=== PATIENT | female | born 1995 | race Caucasian/White ===

== ENCOUNTER 2016-11-14 19:56 | Emergency (ER) | payer BC ==
[2016-11-14 20:10] VITALS: BP 137/88
[2016-11-14] MEDS ORDERED: LORazepam 2 MG/ML MDV IM ONE (20:22)
--- NOTE | 2016-11-14 20:58 | EDM.PDOC ---
ED HPI GENERAL MEDICAL PROBLEM - General Chief Complaint: Behavioral/Psych Stated Complaint: Psychiatric eval Time Seen by Provider: 11/14/16 20:00 Source of Information: Reports: Patient, Old Records, Police, RN Notes Reviewed History Limitations: Reports: Altered Mental Status - History of Present Illness INITIAL COMMENTS - FREE TEXT/NARRATIVE: 21 year old female is brought to the ED tonight by law enforcement due to suicidal thoughts and psychotic behavior. The patient's boyfriend called police and reported that the patient held a gun to her throat. He "wrestled" the gun away and called police. She reportedly smoked marijuana this evening prior to onset of symptoms. When the naval police coxswain arrived, he said that she was acting strange. She was referring to him as Kasey and George. She says she is suicidal and then will say that her boyfriend is trying to kill her. She was cooperative for him. The boyfriend is reportedly coming to the ED. History is difficult. The patient initially tells me "I am suicidal. I put a gun to my throat." When I asked why she stated "Because my boyfriend is trying to kill me." I asked her why she says that and she replied "How do you know my boyfriends name, we are reading each other's minds." She then called me Kasey. She then told me she thinks she is . She then called me george several times. The patient is restless. She walks out of the room and states "I' m suicidal." She denies drug use. She says she is a Voodoo. - Related Data Allergies Allergy/AdvReac Type Severity Reaction Status Date / Time No Known Allergies Allergy Verified 11/14/16 20:01 Home Meds: Home Meds . [No Known Home Meds] 05/16/16 [History] Past Medical History - Past Health History Medical/Surgical History: Denies Medical/Surgical History Psychiatric History: Reports: Depression Social & Family History - Family History Family Medical History: Noncontributory - Tobacco Use Smoking Status *Q: Never Smoker Second Hand Smoke Exposure: Yes - Alcohol Use Days Per Week of Alcohol Use: 3 Number of Drinks Per Day: 5 Total Drinks Per Week: 15 - Recreational Drug Use Recreational Drug Use: Yes Drug Use in Last 12 Months: Yes Recreational Drug Type: Reports: Marijuana/Hashish ED ROS GENERAL - Review of Systems Review Of Systems: Unable To Obtain (altered mental status) ED EXAM, BEHAVIORAL HEALTH - Physical Exam Exam: See Below Exam Limited By: Uncooperative General Appearance: Alert, Other (restless) Eye Exam: Bilateral Eye: EOMI, PERRL (pupils are large but reactive ) Respiratory/Chest: No Respiratory Distress, Lungs Clear, Normal Breath Sounds Cardiovascular: Regular Rate, Rhythm GI/Abdominal: Normal Bowel Sounds, Soft, Non-Tender Neurological: Alert, Normal Gait, Disoriented to Person, Disoriented to Place, Disoriented to Time, Inattentive. No: Ataxia Psychiatric: Alert, Flat Affect, Restless, Inattentive, Uncooperative, Flight of Ideas, Pentecostal Delusions, Suicidal Plan, Suicidal Thoughts Skin Exam: Warm, Dry, Intact COURSE, BEHAVIORAL HEALTH COMP - Course Vital Signs: Last Vital Signs Temp 98.7 F 11/14/16 20:01 Pulse 80 11/14/16 20:01 Resp 18 11/14/16 20:01 BP 137/88 11/14/16 20:01 Pulse Ox 97 11/14/16 20:01 Orders, Labs, Meds: Laboratory Tests 11/14/16 11/14/16 11/14/16 Range/Units 22:55 22:55 22:55 WBC 7.10 (3.98-10.04) K/mm3 RBC 3.92 L (3.98-5.22) M/mm3 Hgb 12.2 (11.2-15.7) gm/L Hct 34.6 (34.1-44.9) % MCV 88.3 (79.4-94.8) fl MCH 31.1 (25.6-32.2) pg MCHC 35.3 (32.2-35.5) g/dl RDW Std Deviation 40.0 (36.4-46.3) fL Plt Count 283 (182-369) K/mm3 MPV 10.6 (9.4-12.3) fl Neut % (Auto) 71.6 H (34.0-71.1) % Lymph % (Auto) 16.3 L (19.3-51.7) % [place] % (Auto) 11.1 (4.7-12.5) % Eos % (Auto) 0.1 L (0.7-5.8) Baso % (Auto) 0.6 (0.1-1.2) % Neut # (Auto) 5.08 (1.56-6.13) K/mm3 Lymph # (Auto) 1.16 L (1.18-3.74) K/mm3 [place] # (Auto) 0.79 H (0.24-0.36) K/mm3 Eos # (Auto) 0.01 L (0.04-0.36) K/mm3 Baso # (Auto) 0.04 (0.01-0.08) K/mm3 Sodium 142 (136-145) mEq/L Potassium 3.7 (3.5-5.1) mEq/L Chloride 107 (98-107) mEq/L Carbon Dioxide 24 (21-32) mEq/L Anion Gap 14.7 (5-15) BUN 7 (7-18) mg/dL Creatinine 0.6 (0.55-1.02) mg/dL Est Cr Clr Drug Dosing 126.38 mL/min Estimated GFR (MDRD) > 60 (>60) mL/min BUN/Creatinine Ratio 11.7 L (14-18) Glucose 109 H (74-106) mg/dL Calcium 9.2 (8.5-10.1) mg/dL Total Bilirubin 0.4 (0.2-1.0) mg/dL AST 28 (15-37) U/L ALT 30 (14-59) U/L Alkaline Phosphatase 56 (46-116) U/L Total Protein 7.4 (6.4-8.2) g/dl Albumin 4.0 (3.4-5.0) g/dl Globulin 3.4 gm/dL Albumin/Globulin Ratio 1.2 (1-2) Free T4 1.09 (0.76-1.46) ng/dL TSH 3rd Generation 7.396 H (0.358-3.74) uIU/mL Urine Color (Yellow) Urine Appearance (Clear) Urine pH (5.0-8.0) Ur Specific [place] (1.005-1.030) Urine Protein (Negative) Urine Glucose (UA) (Negative) Urine Ketones (Negative) Urine Occult Blood (Negative) Urine Nitrite (Negative) Urine Bilirubin (Negative) Urine Urobilinogen (0.2-1.0) Ur Leukocyte Esterase (Negative) Urine RBC (0-5) /hpf Urine WBC (0-5) /hpf Ur Epithelial Cells Ur Squamous Epith Cells (0-5) /hpf Urine Bacteria (FEW) /hpf Urine Mucus (FEW) /hpf Urine HCG, Qual (NEGATIVE) Urine Opiates Screen (NEGATIVE) Ur Buprenorphine Scrn (NEGATIVE) Ur Oxycodone Screen (NEGATIVE) Urine Methadone Screen (NEGATIVE) Ur Propoxyphene Screen (NEGATIVE) Ur Barbiturates Screen (NEGATIVE) Ur Tricyclics Screen (NEGATIVE) Ur Phencyclidine Scrn (NEGATIVE) Ur Amphetamine Screen (NEGATIVE) U Methamphetamines Scrn (NEGATIVE) U Benzodiazepines Scrn (NEGATIVE) U Cocaine Metab Screen (NEGATIVE) U Marijuana (THC) Screen (NEGATIVE) Ethyl Alcohol 0.00 (0.00) gm% 11/14/16 11/14/16 11/14/16 Range/Units 22:57 22:57 22:57 WBC (3.98-10.04) K/mm3 RBC (3.98-5.22) M/mm3 Hgb (11.2-15.7) gm/L Hct (34.1-44.9) % MCV (79.4-94.8) fl MCH (25.6-32.2) pg MCHC (32.2-35.5) g/dl RDW Std Deviation (36.4-46.3) fL Plt Count (182-369) K/mm3 MPV (9.4-12.3) fl Neut % (Auto) (34.0-71.1) % Lymph % (Auto) (19.3-51.7) % [place] % (Auto) (4.7-12.5) % Eos % (Auto) (0.7-5.8) Baso % (Auto) (0.1-1.2) % Neut # (Auto) (1.56-6.13) K/mm3 Lymph # (Auto) (1.18-3.74) K/mm3 [place] # (Auto) (0.24-0.36) K/mm3 Eos # (Auto) (0.04-0.36) K/mm3 Baso # (Auto) (0.01-0.08) K/mm3 Sodium (136-145) mEq/L Potassium (3.5-5.1) mEq/L Chloride (98-107) mEq/L Carbon Dioxide (21-32) mEq/L Anion Gap (5-15) BUN (7-18) mg/dL Creatinine (0.55-1.02) mg/dL Est Cr Clr Drug Dosing mL/min Estimated GFR (MDRD) (>60) mL/min BUN/Creatinine Ratio (14-18) Glucose (74-106) mg/dL Calcium (8.5-10.1) mg/dL Total Bilirubin (0.2-1.0) mg/dL AST (15-37) U/L ALT (14-59) U/L Alkaline Phosphatase (46-116) U/L Total Protein (6.4-8.2) g/dl Albumin (3.4-5.0) g/dl Globulin gm/dL Albumin/Globulin Ratio (1-2) Free T4 (0.76-1.46) ng/dL TSH 3rd Generation (0.358-3.74) uIU/mL Urine Color Light yellow (Yellow) Urine Appearance Clear (Clear) Urine pH 6.5 (5.0-8.0) Ur Specific [place] 1.010 (1.005-1.030) Urine Protein Negative (Negative) Urine Glucose (UA) Negative (Negative) Urine Ketones Negative (Negative) Urine Occult Blood Negative (Negative) Urine Nitrite Negative (Negative) Urine Bilirubin Negative (Negative) Urine Urobilinogen 0.2 (0.2-1.0) Ur Leukocyte Esterase Negative (Negative) Urine RBC Not seen (0-5) /hpf Urine WBC 0-5 (0-5) /hpf Ur Epithelial Cells Not Reportable Ur Squamous Epith Cells 0-5 (0-5) /hpf Urine Bacteria Not seen (FEW) /hpf Urine Mucus Not seen (FEW) /hpf Urine HCG, Qual Negative (NEGATIVE) Urine Opiates Screen Negative (NEGATIVE) Ur Buprenorphine Scrn Negative (NEGATIVE) Ur Oxycodone Screen Negative (NEGATIVE) Urine Methadone Screen Negative (NEGATIVE) Ur Propoxyphene Screen Negative (NEGATIVE) Ur Barbiturates Screen Negative (NEGATIVE) Ur Tricyclics Screen Negative (NEGATIVE) Ur Phencyclidine Scrn Negative (NEGATIVE) Ur Amphetamine Screen Negative (NEGATIVE) U Methamphetamines Scrn Negative (NEGATIVE) U Benzodiazepines Scrn Negative (NEGATIVE) U Cocaine Metab Screen Negative (NEGATIVE) U Marijuana (THC) Screen Presumptive positive H (NEGATIVE) Ethyl Alcohol (0.00) gm% Medications Discontinued Medications Generic Name Dose Route Start Last Admin Trade Name Dania CONNELL Reason Stop Dose Admin Diphenhydramine HCl 50 mg 11/14/16 21:45 11/14/16 22:00 Benadryl IM 11/14/16 21:46 50 mg ONETIME ONE Administration Haloperidol Lactate 5 mg 11/14/16 21:45 11/14/16 22:00 Haldol IM 11/14/16 21:46 5 mg ONETIME ONE Administration Lorazepam 1 mg 11/14/16 20:22 11/14/16 21:09 Ativan IM 11/14/16 20:23 1 mg ONETIME ONE Administration Re-Assessment/Re-Exam: Patient was cooperative with exam. However, she refused lab draw. She also refused to give a urine sample. I explained the importance of these tests and she continues to refuse. She is actively psychotic and a threat to herself. She has not been aggressive to staff with no threatening behaviors at this time. She seems impulsive. Will give Ativan 1mg IM. 2144 Spoke to Psychiatrist school lunch monitor Dr. Gray at [facility]. He is unable to accept the patient until we have obtained labs and urine sample for medical clearance. He agrees that she needs psychiatric evaluation. The patient continues to exhibit the same behaviors and thoughts. Will give Haldol 5mg IM and Benadryl 50mg IM. 2199 The patient's boyfriend presented to the ED. The patient gave us the ok to talk to him. The boyfriend Latrell says they have been together for two years. They live together. He says she has never acted like this before in the past. She has no history of mental health disorders. No history of suicide attempts in the past. She smokes marijuana and smoked earlier today. He says its the same marijuana bag she's had for a while. He says she does not do any other types of drugs. They did drink alcohol last evening. The boyfriend reports that the patients symptoms started last evening. She told him that God talked to her last night and that she's one of the chosen ones. He said she was very excited and kept talking about it. She couldn't sleep last night because she was so excited. She is in fact a Voodoo. She says God told her she is anointed and chose to go to the after life. He gave her two over the counter sleeping pills today since she hasn't slept much. He said shortly after giving her the sleeping pills, is when she started calling him Kasey and George. He says her behavior became much more bizarre about 30 minutes after the pills. He noticed her eyes were moving rapidly. He says her excitement about being chose is what led her to try to kill herself tonight. He said she ran up the stairs of their home and grabbed the gun from under the bed. He heard her cock the gun as he was running into the room. He was able to get the gun away from her. He then proceeded to lock all the guns, knives and sharp objects in his car. He then called for help from the police due to her bizarre behavior. 11/15/16 0030 Labs are back. CBC, CMP, and UA are normal. Hcg is negative. UDS is positive for marijuana. ETOH is 0. TSH is elevated at 7 with a normal free T4. It is unknown if the patient has a history of hypothyroidism. The patient is medically cleared. I spoke to Dr. Gray again on the phone. He has accepted care of the patient. Currently arranging transportation. A [address] The patient is resting quietly at this time. Departure - Departure Time of Disposition: 00:41 Disposition: DC/Tfer to Psych Hosp/Unit [facility] Condition: fair Clinical Impression: Suicidal behavior Qualifiers: Attempted self-injury: with attempted self-injury Qualified Code(s): T14.91 - Suicide attempt Psychosis Qualifiers: Psychosis type: unspecified psychosis type Qualified Code(s): F29 - Unspecified psychosis not due to a substance or known physiological condition - Discharge Information Forms: ED Department Discharge
[2016-11-14] MEDS ORDERED: diphenhydrAMINE 50 MG/ML SDV IM ONE (21:45)
[2016-11-14] MEDS ORDERED: Haloperidol Lactate 5 MG/ML SDV IM ONE (21:45)
== END 2016-11-15 01:45 ==
LOC: JD.ED 19:56
DX: T14.91 Suicide attempt (principal); F29 Unspecified psychosis not due to a substance or known physiological condition
CPT/HCPCS: 36415; 80053; 80306; 81001; 81025; 84439; 84443; 85025; 96372; 99285; G0480; J1200; J1630; J2060; P9612